=== PATIENT | female | born 2000 | race Caucasian/White ===

== ENCOUNTER 2019-03-19 16:08 | Outpatient (CLI) | payer MEDICAID, SELFPAY ==
[2019-03-19 17:12] LABS: HCT 30.8 % (36.0-46.0); HGB 10.1 g/dL (12.0-15.5); Mean Corp. HGB Concentration 32.8 g/dL (32.0-36.0); Mean Corpuscular Hemoglobin 31.5 pg (27.0-33.0); Mean Platelet Volume 11.4 fL (8.0-11.0); Platelet Count 203 x1000/uL (130-400); RBC 3.21 m/cumm (4.00-5.20); RBC Distribution Width 13.3 % (11.7-14.6); White Blood Cell Count 11.59 k/cumm (4.4-10.8)
[2019-03-21 10:28] LABS: Hepatitis C Ab w Rflx HCV PCR Negative (NEGAT)
[2019-03-21 16:23] LABS: Syphilis Total Ab w/Reflex Nonreactive (Nonreactive)
== END 2019-03-19 16:28 ==
PROVIDERS: Advanced Practice Midwife; Visit Provider Advanced Practice Midwife
DX: Z34.91 Encounter for supervision of normal pregnancy, unspecified, first trimester (principal); Z11.59 Encounter for screening for other viral diseases; Z01.84 Encounter for antibody response examination
CPT/HCPCS: 36415; 85027; 86803; 86850; 86900; 86901; 86780

== ENCOUNTER 2019-04-03 17:56 | Outpatient (REF) | payer MEDICAID, SELFPAY ==
[2019-04-03 18:03] LABS: *AMPHETAMINES SCREEN URINE Negative (Negative); *BARBITURATES SCREEN URINE Negative (Negative); *BENZODIAZEPINES SCREEN URINE Negative (Negative); Cannabinoids THC Negative (Negative); Cocaine Screen,Urine Negative (Negative); METHADONE URINE SCREEN Negative (Negative); OPIATES URINE SCREEN Negative (Negative)
[2019-04-03 18:06] LABS: Tricyclic Antidepressants Negative (Negative)
[2019-04-08 11:58] LABS: Buprenorphine Negative; Norbuprenorphine Negative
== END 2019-04-03 18:16 ==
LOC: LBN 17:56
PROVIDERS: PCP Advanced Practice Midwife; Visit Provider Advanced Practice Midwife
DX: Z34.93 Encounter for supervision of normal pregnancy, unspecified, third trimester (principal); Z36.85 Encounter for antenatal screening for Streptococcus B
CPT/HCPCS: 80307; 87081

== ENCOUNTER 2019-04-10 01:21 | Outpatient (RCR) | payer MEDICAID, SELFPAY ==
[2019-04-10] MEDS: Normal Saline Flush 10 ML SYR IVP (08:26)
[2019-04-10] MEDS: IRON SUCROSE COMPLEX 200 MG in Normal Saline 100 ML 110 MG IVPB (08:26)
== END 2019-04-15 23:59 | disposition home or self-care (01) ==
LOC: INF 01:21
PROVIDERS: PCP Advanced Practice Midwife; Visit Provider Advanced Practice Midwife
DX: O99.013 Anemia complicating pregnancy, third trimester (principal); Z3A.38 38 weeks gestation of pregnancy
CPT/HCPCS: 96365; J1756

== ENCOUNTER 2019-04-16 16:27 | Outpatient (REF) | payer MEDICAID, SELFPAY | END 2019-04-16 16:47 | LOC: LBN 16:27 | PROVIDERS: PCP Advanced Practice Midwife; Visit Provider Advanced Practice Midwife | DX: N89.8 Other specified noninflammatory disorders of vagina (principal); O26.899 Other specified pregnancy related conditions, unspecified trimester | CPT/HCPCS: 87480; 87510; 87660 ==

== ENCOUNTER 2019-04-29 03:31 | Inpatient (IN) | payer MEDICAID, SELFPAY ==
[2019-04-29 05:07] LABS: HCT 34.1 % (36.0-46.0); HGB 11.3 g/dL (12.0-15.5); Mean Corp. HGB Concentration 33.1 g/dL (32.0-36.0); Mean Corpuscular Hemoglobin 32.2 pg (27.0-33.0); Mean Corpuscular Volume 97.2 fL (80-95); Mean Platelet Volume 11.2 fL (8.0-11.0); Platelet Count 196 x1000/uL (130-400); RBC 3.51 m/cumm (4.00-5.20); RBC Distribution Width 14.8 % (11.7-14.6); White Blood Cell Count 12.86 k/cumm (4.4-10.8)
[2019-04-29] MEDS: Acetaminophen 325 MG TAB 650 MG PO (14:04)
[2019-04-29] MEDS: Hamamelis Leaf/Glycerin 100 EACH BOX PR (14:05)
[2019-04-29] MEDS: Ibuprofen 600 MG TAB PO (23:38)
[2019-04-30] MEDS: Acetaminophen 325 MG TAB 650 MG PO ×2 (13:12→18:53)
[2019-04-30] MEDS: Ibuprofen 600 MG TAB PO ×2 (13:13→18:53)
[2019-05-01] MEDS: Ibuprofen 600 MG TAB PO (12:15)
[2019-05-01] MEDS: Acetaminophen 325 MG TAB 650 MG PO (12:16)
== END 2019-05-01 16:20 | disposition home or self-care (01) | DRG 807 ==
PROVIDERS: Admitting Provider Advanced Practice Midwife; PCP Nurse Practitioner; Visit Provider Advanced Practice Midwife
DX: O48.0 Post-term pregnancy (principal); Z37.0 Single live birth; Z3A.41 41 weeks gestation of pregnancy; O99.02 Anemia complicating childbirth; D64.9 Anemia, unspecified; O69.81X0 Labor and delivery complicated by cord around neck, without compression, not applicable or unspecified; Z30.013 Encounter for initial prescription of injectable contraceptive; Z67.10 Type A blood, Rh positive
CPT/HCPCS: 36415; 85027; 86850; 86900; 86901; J1050

== ENCOUNTER 2019-05-01 01:50 | Outpatient (RCR) | payer MEDICAID, SELFPAY ==
[2019-04-17] MEDS: Normal Saline Flush 10 ML SYR IVP (08:19)
[2019-04-17] MEDS: IRON SUCROSE COMPLEX 200 MG in Normal Saline 100 ML 110 MG IVPB (08:19)
[2019-04-24] MEDS: IRON SUCROSE COMPLEX 200 MG in Normal Saline 100 ML 110 MG IVPB (08:39)
[2019-04-24] MEDS: Normal Saline Flush 10 ML SYR IVP (08:40)
== END 2019-05-16 23:59 | disposition home or self-care (01) ==
LOC: INF 01:50
PROVIDERS: PCP Advanced Practice Midwife; Visit Provider Advanced Practice Midwife
DX: O99.013 Anemia complicating pregnancy, third trimester (principal)
CPT/HCPCS: 96365; J1756

== ENCOUNTER 2019-06-26 13:04 | Outpatient (CLI) | payer MEDICAID, SELFPAY ==
[2019-06-26 13:22] LABS: HCT 40.2 % (36.0-46.0); HGB 13.4 g/dL (12.0-15.5); Mean Corp. HGB Concentration 33.3 g/dL (32.0-36.0); Mean Corpuscular Hemoglobin 30.8 pg (27.0-33.0); Mean Corpuscular Volume 92.4 fL (80-95); Mean Platelet Volume 10.9 fL (8.0-11.0); Platelet Count 222 x1000/uL (130-400); RBC 4.35 m/cumm (4.00-5.20); RBC Distribution Width 12.8 % (11.7-14.6); White Blood Cell Count 7.62 k/cumm (4.4-10.8)
[2019-06-26 14:35] LABS: Calculated LDL 125 mg/dL; Cholesterol 185 mg/dL (<200); HDL Cholesterol 36 mg/dL (40-60); Triglyceride 124 mg/dL (<150)
== END 2019-06-26 13:24 ==
PROVIDERS: PCP Nurse Practitioner; Visit Provider Nurse Practitioner
DX: D64.9 Anemia, unspecified (principal); Z13.6 Encounter for screening for cardiovascular disorders
CPT/HCPCS: 36415; 80061; 85027

== ENCOUNTER 2019-07-25 16:53 | Outpatient (REF) | payer MEDICAID, SELFPAY ==
[2019-07-26 14:08] LABS: Chlamydia Result Negative (Negative); GC Result Negative (Negative)
== END 2019-07-25 17:13 ==
LOC: LBN 16:53
PROVIDERS: PCP Nurse Practitioner; Visit Provider Nurse Practitioner Family
DX: Z11.3 Encounter for screening for infections with a predominantly sexual mode of transmission (principal)
CPT/HCPCS: 87491; 87591

== ENCOUNTER 2022-09-12 02:52 | Outpatient (CLI) | payer MEDICAID, SELFPAY ==
[2022-09-12 12:08] LABS: Panorama Kit Sent via Fed Ex
[2022-09-12 12:28] LABS: Abs Immature Grans 0.02 10^3/uL (0.0-0.06); Absolute Basophil Count 0.01 10^3/uL (0.0-0.2); Absolute Eosinophil Count 0.14 10^3/uL (0.0-0.7); Absolute Lymphocyte Count 1.45 10^3/uL (1.2-3.4); Absolute Monocyte Count 0.34 10^3/uL (0.1-0.8); Absolute Neutrophil Count 3.69 10^3/uL (1.2-6.7); Basophils % 0.2; Eosinophils % 2.5; HCT 32.6 % (36.0-46.0); HGB 11.3 g/dL (11.2-15.7); Immature Grans % 0.4; Lymphocytes % 25.7; MCH 30.7 pg (27.0-33.0); MCHC 34.7 % (32.0-36.0); MCV 89 fL (80-95); MPV 11.2 fL (8.0-11.0); Neutrophils % 65.2; Platelet Count 175 10^3/uL (130-400); RBC 3.68 10^6/uL (3.93-5.22); RDW 12.6 % (11.7-14.6); RDW-SD 40.8 fL; WBC 5.65 10^3/uL (4.4-10.8)
[2022-09-12 12:58] LABS: Glucose,1 Hr (Glucola) 72 mg/dL (80-140)
[2022-09-13 10:08] LABS: Hepatitis B Surface Ag Negative (Negative)
[2022-09-13 10:28] LABS: Varicella IgG Antibody Negative (See Note)
[2022-09-13 10:42] LABS: HIV-1/2 Ag & Ab Screen Negative (Negative)
[2022-09-13 10:46] LABS: Hepatitis C Ab w Rflx HCV PCR Negative (Negative)
[2022-09-13 12:42] LABS: Rubella IgG Ab (UVM) Positive (See Note)
[2022-09-14 14:01] LABS: Syphilis IgG w/Reflex Nonreactive (Nonreactive)
== END 2022-09-12 02:53 | disposition home or self-care (01) ==
LOC: LBO 02:53
PROVIDERS: PCP Nurse Practitioner; Visit Provider Advanced Practice Midwife
DX: Z34.91 Encounter for supervision of normal pregnancy, unspecified, first trimester (principal)
CPT/HCPCS: 36415; 82950; 86787; 86803; 86850; 86900; 86901; 87340; 87389; 85025; 86762; 86780

== ENCOUNTER 2022-09-12 12:23 | Outpatient (CLI) | payer MEDICAID, SELFPAY ==
[2022-09-12 14:07] LABS: *AMPHETAMINES SCREEN URINE Negative (Negative); *BARBITURATES SCREEN URINE Negative (Negative); *BENZODIAZEPINES SCREEN URINE Negative (Negative); Cannabinoids THC Negative (Negative); Cocaine Screen,Urine Negative (Negative); METHADONE URINE SCREEN Negative (Negative); OPIATES URINE SCREEN Negative (Negative)
[2022-09-12 14:10] LABS: Tricyclic Antidepressants Negative (Negative)
[2022-09-17 11:48] LABS: Buprenorphine Negative ng/mL (Cutoff: 5.0); Norbuprenorphine Negative ng/mL (Cutoff: 2.5)
== END 2022-09-12 12:24 | disposition home or self-care (01) ==
LOC: LBN 12:24
PROVIDERS: PCP Nurse Practitioner; Visit Provider Advanced Practice Midwife
DX: Z34.91 Encounter for supervision of normal pregnancy, unspecified, first trimester (principal)
CPT/HCPCS: 80307; 80348; 87086

== ENCOUNTER 2022-11-09 16:18 | Outpatient (REF) | payer MEDICAID, SELFPAY ==
[2022-11-11 15:14] LABS: Chlamydia Result Negative (Negative); GC Result Negative (Negative)
== END 2022-11-09 16:19 | disposition home or self-care (01) ==
LOC: LBN 16:18
PROVIDERS: PCP Nurse Practitioner; Visit Provider Advanced Practice Midwife
DX: Z34.92 Encounter for supervision of normal pregnancy, unspecified, second trimester (principal); Z11.3 Encounter for screening for infections with a predominantly sexual mode of transmission; Z3A.19 19 weeks gestation of pregnancy
CPT/HCPCS: 87491; 87591

== ENCOUNTER 2022-11-21 01:07 | Outpatient (CLI) | payer MEDICAID, SELFPAY ==
--- NOTE | 2022-11-21 07:45 | DI.US_ITS ---
Exam(s) US OB 2-3 TRIMESTER EXAM: US OB 2-3 TRIMESTER CLINICAL HISTORY: morphology,z34.92. TECHNIQUE: Transabdominal obstetrical ultrasound performed. COMPARISON: US POCUS EXAM from 08/29/2022 FINDINGS: Number of fetuses: One. position: Variable Placental grade: 0-1 Placental location: Posterior. No evidence of previa. BIOMETRIC DATA: BPD: 50mm = 21+2 weeks HC: 184mm = 20+ 5 weeks AC: 1 6mm = 21+1 weeks FL: 35mm = 20+ 6 weeks Cisterna Magna: 4.9 mm Cerebellum: 2.1 cm EFW: 391 grms 60% Composite Age: 21+ 0 weeks EDC by US: 03 April 2023 Heart Rate: 140BPM Amniotic fluid : Amount of fluid is within normal limits. ANATOMICAL SURVEY: Four-chambered heart: Unremarkable. LVOT: Unremarkable. RVOT: Unremarkable. Left-sided stomach: Unremarkable. urinary bladder: Unremarkable. Bilateral kidneys: Unremarkable. Three-vessel cord: Unremarkable. Cord insertion: Unremarkable. Posterior fossa:Unremarkable. ventricles: Unremarkable. nose: Unremarkable. lips: Unremarkable. palate: Unremarkable. spine: Unremarkable. Two arms and two legs: Unremarkable. IMPRESSION: 1. Single live intrauterine gestation measuring 21+ 0 weeks.. 2. Normal anatomic survey. DATA REPOSITORY:
== END 2022-11-21 01:27 ==
LOC: DI 01:07
PROVIDERS: PCP Nurse Practitioner; Visit Provider Advanced Practice Midwife
DX: Z34.92 Encounter for supervision of normal pregnancy, unspecified, second trimester (principal)
CPT/HCPCS: 76805

== ENCOUNTER 2022-12-13 03:21 | Outpatient (RCR) | payer MEDICAID, SELFPAY ==
[2022-12-05] MEDS: IRON SUCROSE COMPLEX 200 MG in Normal Saline 100 ML 440 MG IVPB (13:18)
[2022-12-05] MEDS: Normal Saline Flush 10 ML SYR IVP (13:21)
== END 2022-12-14 23:59 | disposition home or self-care (01) ==
LOC: INF 03:21
PROVIDERS: PCP Nurse Practitioner; Visit Provider Advanced Practice Midwife
DX: O99.012 Anemia complicating pregnancy, second trimester (principal); D64.9 Anemia, unspecified
CPT/HCPCS: 36415; 96365; 85018; J1756

== ENCOUNTER 2023-01-02 04:16 | Outpatient (CLI) | payer MEDICAID, SELFPAY ==
[2023-01-02 11:10] LABS: HGB 11.9 g/dL (11.2-15.7); MCH 32.1 pg (27.0-33.0); MCV 94 fL (80-95); Platelet Count 171 10^3/uL (130-400); RBC 3.71 10^6/uL (3.93-5.22); RDW 13.4 % (11.7-14.6); RDW-SD 46.6 fL; WBC 7.21 10^3/uL (4.4-10.8)
[2023-01-02 12:23] LABS: Glucose,1 Hr (Glucola) 106 mg/dL (80-140)
[2023-01-02 13:03] LABS: *AMPHETAMINES SCREEN URINE Negative (Negative); *BARBITURATES SCREEN URINE Negative (Negative); *BENZODIAZEPINES SCREEN URINE Negative (Negative); Cannabinoids THC Negative (Negative); Cocaine Screen,Urine Negative (Negative); METHADONE URINE SCREEN Negative (Negative); OPIATES URINE SCREEN Negative (Negative)
[2023-01-02 13:10] LABS: Tricyclic Antidepressants Negative (Negative)
== END 2023-01-02 04:17 | disposition home or self-care (01) ==
LOC: LBO 04:17
PROVIDERS: Advanced Practice Midwife; PCP Nurse Practitioner; Visit Provider Advanced Practice Midwife
DX: O99.322 Drug use complicating pregnancy, second trimester (principal); Z3A.26 26 weeks gestation of pregnancy
CPT/HCPCS: 36415; 80307; 82950; 85027

== ENCOUNTER 2023-03-07 08:38 | Outpatient (CLI) | payer MEDICAID, SELFPAY ==
[2023-03-07 09:18] VITALS: BP 107/57; PULSE 73; TEMP 36.9
[2023-03-07 09:40] VITALS: BP 107/57; PULSE 73
[2023-03-07 09:44] LABS: ROM Plus Negative
--- NOTE | 2023-03-07 12:19 | W.OBNST ---
Date of service: 03/07/23 Time of Service: 12:21 NST Evaluation Reason for NST Reasons for Nonstress Test: OTHER, SEE COMMENT Reason for NST Other: ? SROM Gestational Age Gestational Age in Weeks and Days: 35 Weeks and 6Days Test and Monitor Explained Test/Monitor Explained: Test Explained, Monitor Explained and Patient Verbalized Understanding Vital Signs Blood Pressure: 107/57 Pulse: 73 Temperature: 98.4 F NST Information Date on Monitor: 03/07/23 Time on Monitor: 09:16 Date off Monitor: 03/07/23 Time off Monitor: 10:33 Total Time on Monitor: 77 NST Interventions: PO Hydration Contraction Frequency: None NST Evaluation Patient States Movement: Present FHR Baseline: 135 Variability: Moderate 6-25 bpm Accelerations: 15x15 Decelerations: None NST Results: Reactive Note Ultrasound Done: Presentation Presentation Results: vertex Coding for Presentation w/NST: Completed Exam. NST Note Note: Amanda experienced a trickle of fluid from her vagina last evening. She did not wear a pad in and denies leaking currently. ROM plus neg. Neg pooling ferning and nitrazine. Mucus and rock discharge noted. Vaginal pathogen screen taken and GBS. No evidence of labor or ROM. Signs of labor reviewed. NST Reviewed and Verified by: Maite Ro
[2023-03-07 12:21] VITALS: BP 107/57; PULSE 73; TEMP 36.9
== END 2023-03-07 10:45 | disposition home or self-care (01) ==
LOC: BCD 08:41 → OBS 08:44
PROVIDERS: PCP Nurse Practitioner; Visit Provider Advanced Practice Midwife
DX: O47.03 False labor before 37 completed weeks of gestation, third trimester (principal); Z3A.35 35 weeks gestation of pregnancy
CPT/HCPCS: 84112; 59025; 87081; 87480; 87510; 87660

== ENCOUNTER 2023-03-13 09:55 | Outpatient (REF) | payer MEDICAID, SELFPAY ==
[2023-03-13 10:59] LABS: *AMPHETAMINES SCREEN URINE Negative (Negative); *BARBITURATES SCREEN URINE Negative (Negative); *BENZODIAZEPINES SCREEN URINE Negative (Negative); Cannabinoids THC Negative (Negative); Cocaine Screen,Urine Negative (Negative); METHADONE URINE SCREEN Negative (Negative); OPIATES URINE SCREEN Negative (Negative)
[2023-03-13 11:01] LABS: Tricyclic Antidepressants Negative (Negative)
[2023-03-18 11:30] LABS: Buprenorphine Negative ng/mL (Cutoff: 5.0)
== END 2023-03-13 09:56 | disposition home or self-care (01) ==
LOC: LBN 09:55
PROVIDERS: PCP Nurse Practitioner; Visit Provider Advanced Practice Midwife
DX: Z34.93 Encounter for supervision of normal pregnancy, unspecified, third trimester (principal)
CPT/HCPCS: 80307; 80348

== ENCOUNTER 2023-04-01 03:27 | Inpatient (IN) | payer MEDICAID, SELFPAY ==
[2023-04-01] VITALS (65 sets, daily range): BP systolic 100–134; BP diastolic 55–71; PULSE 56–84; RESP 16–17; TEMP 36.5–36.7; O2SAT 90–100; BMI 37.0
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
[2023-04-01 04:45] LABS: HCT 32.1 % (36.0-46.0); HGB 10.9 g/dL (11.2-15.7); MCH 31.2 pg (27.0-33.0); MCV 92 fL (80-95); MPV 11.9 fL (8.0-11.0); Platelet Count 159 10^3/uL (130-400); RBC 3.49 10^6/uL (3.93-5.22); RDW 13.3 % (11.7-14.6); RDW-SD 44.3 fL; WBC 7.61 10^3/uL (4.4-10.8)
[2023-04-01 05:00] LABS: ROM Plus Negative
--- NOTE | 2023-04-01 05:01 | ANES.PREOP_ITS ---
General Info Date of Service Date Performed: 04/01/23 Height: 5 ft 8 in Weight: 110.677 kg Body Mass Index (BMI): 37.0 Meds Allergies and Home Medications Allergies Allergy/AdvReac Type Severity Reaction Status Date / Time cat hair Allergy Mild Itching Uncoded 04/01/23 04:25 dog hair Allergy Mild Itching Uncoded 04/01/23 04:25 Home Medication Medication Instructions Recorded albuterol sulfate 90 mcg/actuation 2 puff inhalation QID PRN 07/25/22 aerosol inhaler shortness of breath or wheezing #18 grams vitamin with calcium 1 tab PO DAILY #90 tabs 08/11/22 no.72-iron 27 mg-folic acid 1 mg tablet bupropion HCl 150 mg 24 hr tablet, 150 mg PO QAM #30 tabs 01/12/23 extended release (Wellbutrin XL) Current Visit Medications: Current Medications Generic Name Dose Route Start Last Admin Trade Name Freq PRN Reason Stop Dose Admin Albuterol Sulfate 2 puff 04/01/23 04:43 Albuterol Hfa 8 Gm 60 Puff Inh IH QID PRN shortness of breath or wheezing Bupropion HCl 150 mg 04/01/23 08:30 Bupropion-Xl 150 Mg Tabcr PO QAM MIRNA Device 1 each 04/01/23 05:00 Inhaler, Assist Device MC DIRECTED MIRNA Fentanyl/Ropivacaine 200 ml 04/01/23 04:30 Fentanyl/Ropivacaine 2 Mcg/Ml And 0.1% 200 Ml Cadd Cassette EP DIRECTED MIRNA Sodium Chloride 500 mls @ 0 mls/hr 04/01/23 04:01 Saline 500ml Bag IV PRN PRN As Directed Ringer's Solution 500 mls @ 500 mls/hr 04/01/23 04:23 IV 04/01/23 05:22 BOLUS ONE IV Miscellaneous Supplies 1 each 04/01/23 04:15 Iv Access IV DIRECTED [facility] Multivitamins 1 tab 04/01/23 08:30 Multivitamin W/Ca,Fe Tab PO DAILY MIRNA Sodium Chloride 0 ml 04/01/23 04:01 Normal Saline Flush 10 Ml Syr IVP PRN PRN PFSH Active Problems Active Problems: Problem Status Onset Code Normal labor O80, Z37.9 Susceptible to varicella (non-immune), currently O09.899, Z28.39 Z34.90 Migraine headache without aura G43.009 Psoriasis L40.9 Contraception Z30.9 Constipation K59.00 External hemorrhoid K64.4 Cat allergies J30.81 Depression affecting , O99.345, F53.0 Asthma J45.909 Medical History Medical History Anemia affecting first COVID-19 (06/19/21) History of ovarian cyst Pneumonia (06/19/21) Tobacco Smoking/Tobacco Use Status: Former Tobacco Use Second hand exposure: Yes Alcohol Alcohol Intake: current Alcohol intake frequency: a few times a month Substance Use Substance use: Never Substance use type: does not use Prental History History 3 Para 2 Hx # Term Pregnancies 2 Multiple births 0 Hx # Pregnancies 0 Ectopic pregnancies 0 AB induced 0 Hx Number of Living Children 2 AB spontaneous 0 Past Pregnancies Del. Date GA/Weeks # Preg Succ Route Wgt Sex Labor Lgth Anesth esia Location Prov Compl 04/29/19 40 No vaginal 3742.137 g Male 11 hrs 29 min Maite Ro CNM 10/06/21 40 No Yes vaginal 3770.487 g Male [address] [place], [place] Delivery Date: 04/29/19 Last Updated by: Maite Bar CNM [place] Delivery Date: 10/06/21 Last Updated by: SHUN Grimes. PROM, IOL Vital Signs and Lab Results Vital Signs Most Recent Vital Signs in EMR: Most Recent Vital Signs Temp Pulse Resp BP Pulse Ox 36.5 C 72 17 100/56 L 98 04/01/23 04:39 04/01/23 04:39 04/01/23 04:39 04/01/23 04:39 04/01/23 04:39 Lab Results 04/01/23 04:30 Blood Type / Crossmatch: Patient ABO/Rh A Positive 04/01/23 Antibody Screen NEGATIVE 04/01/23 Complete Blood Count: White Blood Count 7.61 10^3/uL (4.4-10.8) 04/01/23 04:30 Red Blood Count 3.49 10^6/uL (3.93-5.22) L 04/01/23 04:30 Hemoglobin 10.9 g/dL (11.2-15.7) L 04/01/23 04:30 Hematocrit 32.1 % (36.0-46.0) L 04/01/23 04:30 Platelet Count 159 10^3/uL (130-400) 04/01/23 04:30 Complete Metabolic Panel: No Data to Display Liver Function Panel: No Data to Display Coagulation Panel: No Data to Display Cardiac Panel: No Data to Display Arterial Blood Gas: No Data to Display Venous Blood Gas: No Data to Display Pancreas Panel: No Data to Display Thyroid Panel: No Data to Display Infectious Disease: No Data to Display Blood Cultures: No Data to Display Toxicology Panel: Urine Amphetamines Screen Negative (Negative) 03/13/23 09:00 Urine Benzodiazepines Screen Negative (Negative) 03/13/23 09:0 0 Urine Barbiturates Screen Negative (Negative) 03/13/23 09:00 Urine Cocaine Screen Negative (Negative) 03/13/23 09:00 Urine Methadone Screen Negative (Negative) 03/13/23 09:00 Urine Opiates Screen Negative (Negative) 03/13/23 09:00 Ur Tricyclic Antidepressants Screen Negative (Negative) 09:00 Ur Tetrahydrocannabinol (THC) Scrn Negative (Negative) 3 09:00 Panel: No Data to Display Anesthesia Assessment and Plan Anesthesia History Personal History: No History of Anesthesia Complications Family History: No Family History of Anesthesia Complications Exercise Tolerance Exercise Tolerance: Metabolic Equivalents>4 Pertinent Negatives Pertinent Negatives: No Major Cardiovascular Symptoms or Complaints, No Major Pulmonary Symptoms or Complaints and No History of CVA/TIA Cardiac & Pulmonary Exam Cardiac Exam: Normal S1/S2 Heart Sounds Pulmonary Exam: Clear Bilateral Breath Sounds Implantable Cardiac Device Does patient have a Pacemaker or an ICD?: No Airway Exam Known Difficult Airway: No Mallampati Class: 2 Mouth Opening: Normal (> 3cm) Thyromental Distance: Greater than 3 cm Neck Range of Motion: Full ROM Neck Circumference: Normal Teeth Condition: Normal Dentition ASA Classification ASA Score: ASA 2 Emergency Case?: No NPO Status NPO Status: NPO Clears >2 hours, Solids >8 hours Status Status: Confirmed Anesthesia Plan Resuscitation Status: Full Code Anesthesia Technique: Epidural Anesthesia Airway Planned: Natural Airway Pain Management: Surgeon and patient request nerve block Monitors Used: Standard Monitors
[2023-04-01] MEDS: FentaNYL/ROPIvacaine 2 mcg/ml and 0.1% 200 ML CADD Cassette EP (05:40)
--- NOTE | 2023-04-01 05:46 | W.PM.OBNL1 ---
Date of service: 04/01/23 Time of Service: 05:46 Pelvic Exam Comments: VE deferred Contractions Monitor Mode: External Contraction Frequency(min): 3 Contraction Duration(sec): 60 Intensity: Moderate/Strong Fetus A Monitor: External (US) Heart Rate Baseline: 125 Presentation: Cephalic Variability: Moderate (6-25 BPM) Categories: Category I Amniotic Membrane Status: Intact Assessment Note: ROM + negative Assessment and Plan Assessment and plan (1) Normal labor: Status: Acute Assessment and plan: 1. epidural is in place and bolus is going now 2. Will reassess VE after epidural is more effective, consider AROM if BOW is palpable 3. Expect NVD. Dr. Nolen is aware of patient admission and status. KH Objective Abnormal lab results 04/01/23 Range/Units 04:30 RBC 3.49 L (3.93-5.22) 10^6/uL Hgb 10.9 L (11.2-15.7) g/dL Hct 32.1 L (36.0-46.0) % MPV 11.9 H (8.0-11.0) fL Temp Pulse Resp BP Pulse Ox 97.7 F 76 17 116/67 99 04/01/23 04:39 04/01/23 05:45 04/01/23 04:39 04/01/23 05:43 04/01/23 05:45 Laboratory Results WBC 7.61 10^3/uL (4.4-10.8) 04/01/23 04:30 RBC 3.49 10^6/uL (3.93-5.22) L 04/01/23 04:30 Hgb 10.9 g/dL (11.2-15.7) L 04/01/23 04:30 Hct 32.1 % (36.0-46.0) L 04/01/23 04:30 MCV 92 fL (80-95) 04/01/23 04:30 MCH 31.2 pg (27.0-33.0) 04/01/23 04:30 MCHC 34.0 % (32.0-36.0) 04/01/23 04:30 RDW 13.3 % (11.7-14.6) 04/01/23 04:30 Plt Count 159 10^3/uL (130-400) 04/01/23 04:30 MPV 11.9 fL (8.0-11.0) H 04/01/23 04:30 Membranes Rupture Negative 04/01/23 04:25 Patient ABO/Rh A Positive 04/01/23 04:30 Antibody Screen NEGATIVE 04/01/23 04:30 Vital Signs Reviewed: Yes Subjective Interval history since last seen: Amanda tolerated epidural well and is now laying down again awaiting relief. Interventions Pain Management Interventions: Epidural. Results Hemoglobin/Hematocrit: Hgb 10.9 g/dL (11.2-15.7) L 04/01/23 04:30 Hct 32.1 % (36.0-46.0) L 04/01/23 04:30 Abnormal Lab Findings: Abnormal Labs 04/01/23 04:30 RBC 3.49 L Hgb 10.9 L Hct 32.1 L MPV 11.9 H
--- NOTE | 2023-04-01 05:47 | ANES.NEUR_ITS ---
Epidural/Spinal Catheter Date Performed: 04/01/23 Procedure Start: 05:20 Procedure Stop: 05:35 Requesting Provider: Maite Bar Procedure Location: Obstetrics Reason Performed: Labor Epidural Standard Monitors Applied: Blood Pressure and SpO2 Patient Position: Sitting Sedation Given (Indicate Dose Given): No Sedation given Patient Mental Status: Awake Sterility: Hand Hygiene, Surgical Cap, Surgical Mask, Sterile Gloves, Sterile Drape/Sheet and Chlorhexidine Procedure Location: L4-L5 Interspace Epidural Needle: Tuohy 17 Guage Needle Length: 3.5 Inch Needle Approach: Midline Epidural Procedure: Skin Prepped, Sterile Drape Placed, 1% Lidocaine to skin and subcutaneous tissue with 25G needle, Tuohy Needle placed, Bone Contacted despite needle repositioning (L3/L4: proceeded to L4/L5 level), DERICK to Saline Used, Epidural Catheter Placed (L4/5), Negative Heme, Negative CSF Flow and Tuohy Needle Removed Catheter Placed?: Catheter Placed Test Dose (Indicate Dose Given): 5ml 1.5% Lidocaine with 1:200K Epinephrine Given and Negative Test Dose Loss of Resistance Depth (cm): 9 Catheter depth at skin (cm): 15 Dressing: Sorbaview Dressing Placed, Mastisol Used and Dressing reinforced with Tape Epidural Provider Bolus (Indicate Dose Given): Total Ropivacaine 0.1% with Fentanyl 2mcg/ml Given from pump. (ml) Dose:: 10 ml Additives (Indicate Dose Given ): N one Infusion Medication: Medication Infusion Began Medication Infusion: Ropivacaine 0.1% with Fentanyl 2mcg/ml Maintenance Infusion Rate (ml/hour): 10 PCEA Bolus Dose (ml): 5 Block Level: N/A (Currently still setting up) Paresthesia: Left Paresthesia Duration: Transient Ultrasound: Not Used Number of Attempts (See previous attempts in note section): 2 Procedure Tolerated: No Complications and Patient tolerated well Procedure Outcome: Successful Performed By: Cale Watt
--- NOTE | 2023-04-01 07:26 | W.PM.OBNL1 ---
Date of service: 04/01/23 Time of Service: 07:26 Pelvic Exam Comments: last VE was 8cm following epidural, currently deferred Contractions Monitor Mode: External Contraction Frequency(min): 2-4 Contraction Duration(sec): 50-80 Intensity: Moderate/Strong Fetus A Monitor: External (US) Heart Rate Baseline: 120 Variability: Moderate (6-25 BPM) Categories: Category I Accelerations: Present Decelerations: Early (not recurrent) Assessment and Plan Assessment and plan (1) Normal labor: Status: Acute Assessment and plan: 1. continue current management, expect NVD. KH Objective Abnormal lab results 04/01/23 Range/Units 04:30 RBC 3.49 L (3.93-5.22) 10^6/uL Hgb 10.9 L (11.2-15.7) g/dL Hct 32.1 L (36.0-46.0) % MPV 11.9 H (8.0-11.0) fL Temp Pulse Resp BP Pulse Ox 97.7 F 72 17 129/59 L 99 04/01/23 04:39 04/01/23 07:14 04/01/23 04:39 04/01/23 07:14 04/01/23 07:05 Laboratory Results WBC 7.61 10^3/uL (4.4-10.8) 04/01/23 04:30 RBC 3.49 10^6/uL (3.93-5.22) L 04/01/23 04:30 Hgb 10.9 g/dL (11.2-15.7) L 04/01/23 04:30 Hct 32.1 % (36.0-46.0) L 04/01/23 04:30 MCV 92 fL (80-95) 04/01/23 04:30 MCH 31.2 pg (27.0-33.0) 04/01/23 04:30 MCHC 34.0 % (32.0-36.0) 04/01/23 04:30 RDW 13.3 % (11.7-14.6) 04/01/23 04:30 Plt Count 159 10^3/uL (130-400) 04/01/23 04:30 MPV 11.9 fL (8.0-11.0) H 04/01/23 04:30 Membranes Rupture Negative 04/01/23 04:25 Patient ABO/Rh A Positive 04/01/23 04:30 Antibody Screen NEGATIVE 04/01/23 04:30 Subjective Interval history since last seen: remains very comfortable and denies urge to push. Visiting with family. Results Hemoglobin/Hematocrit: Hgb 10.9 g/dL (11.2-15.7) L 04/01/23 04:30 Hct 32.1 % (36.0-46.0) L 04/01/23 04:30 Abnormal Lab Findings: Abnormal Labs 04/01/23 04:30 RBC 3.49 L Hgb 10.9 L Hct 32.1 L MPV 11.9 H
--- NOTE | 2023-04-01 08:09 | W.PM.OBNL1 ---
Date of service: 04/01/23 Time of Service: 08:09 Pelvic Exam Dilation: 9.5 Effacement (%): 100 station: -1 Cervix Position: anterior Consistency: soft Contractions Monitor Mode: External Contraction Frequency(min): 3-5 Contraction Duration(sec): 60 Intensity: Moderate/Strong Fetus A Monitor: External (US) Heart Rate Baseline: 120 Variability: Moderate (6-25 BPM) Categories: Category I Assessment and Plan Assessment and plan (1) Normal labor: Status: Acute Assessment and plan: 1. continue present management, will reassess in 1 hour or prn, expect NVD 2. Report to Dr. Nolen given as MD was on unit, no change to plan of care. KH Objective Abnormal lab results 04/01/23 Range/Units 04:30 RBC 3.49 L (3.93-5.22) 10^6/uL Hgb 10.9 L (11.2-15.7) g/dL Hct 32.1 L (36.0-46.0) % MPV 11.9 H (8.0-11.0) fL Temp Pulse Resp BP Pulse Ox 97.7 F 72 16 129/59 L 99 04/01/23 04:39 04/01/23 07:14 04/01/23 07:00 04/01/23 07:14 04/01/23 07:05 Laboratory Results WBC 7.61 10^3/uL (4.4-10.8) 04/01/23 04:30 RBC 3.49 10^6/uL (3.93-5.22) L 04/01/23 04:30 Hgb 10.9 g/dL (11.2-15.7) L 04/01/23 04:30 Hct 32.1 % (36.0-46.0) L 04/01/23 04:30 MCV 92 fL (80-95) 04/01/23 04:30 MCH 31.2 pg (27.0-33.0) 04/01/23 04:30 MCHC 34.0 % (32.0-36.0) 04/01/23 04:30 RDW 13.3 % (11.7-14.6) 04/01/23 04:30 Plt Count 159 10^3/uL (130-400) 04/01/23 04:30 MPV 11.9 fL (8.0-11.0) H 04/01/23 04:30 Membranes Rupture Negative 04/01/23 04:25 Patient ABO/Rh A Positive 04/01/23 04:30 Antibody Screen NEGATIVE 04/01/23 04:30 Subjective Interval history since last seen: starting to feel rectal pressure but no strong urge to push, requested VE Results Hemoglobin/Hematocrit: Hgb 10.9 g/dL (11.2-15.7) L 04/01/23 04:30 Hct 32.1 % (36.0-46.0) L 04/01/23 04:30 Abnormal Lab Findings: Abnormal Labs 04/01/23 04:30 RBC 3.49 L Hgb 10.9 L Hct 32.1 L MPV 11.9 H
[2023-04-01] MEDS: Oxytocin/Normal Saline 30 UNIT/500 ML BAG 334 UNITS IV (09:00)
--- NOTE | 2023-04-01 09:09 | W.OBDELIVERY ---
Date of service: 04/01/23 Time of Service: 09:10 OB Labor/ Delivery Information Baby A Delivery Delivery Method: Spontaneaous Presentation: Cephalic Cephalic Position: Vertex Vertex Position: Left Occipital Anterior Cord Description-Baby A: 3 Vessels and Nuchal Cord (X 1 loose, reduced prior to shoulders delivering) Amniotic Fluid: Clear Estimated Blood Loss: 300 Delivery Outcome: Liveborn Complications: none Transferred: Remains with Mother Note: Amanda presented in active labor early this morning after labor started at 0030. Her desire was epidural for pain management and that was arranged. She had good labor progression to 8cm after epidural and at that time AROM was performed for clear fluid, at 0605. At 8:30 she felt urge to push and was found to be 10 cm, 100%, +2. She pushed with excellent effort and baby's head delivered at 0856, nuchal cord X 1 loose was noted and reduced quickly before shoulders and body delivered spontaneously with maternal pushing effort. Baby was placed skin to skin. 8 and 9. 3 vessel cord noted. When pulsations ceased, cord was double clamped and then cut by FOB. Cord blood obtained. Pitocin was initiated via IV per orders after of baby. Placenta delivered with maternal pushing effort at 0856, intact. Fundus firms to below U with massage. Bimanual done by CNM confirms no clots in upper vagina and firm lower uterine segment. Perineum and vagina are intact. Sponge, needle and instrument count are correct. EBL 300cc. Expect 24 hour PP stay. Amanda plans to formula feed her son, Refugio. She has been education on the benefits of breast feeding and potential risks of formula feeding and feels confident in her choice. They plan circumcision for their . Decline taking placenta home with them. Refugio's weight was 7lb 12.5 oz. Amanda is planning tubal ligation for contraception. Providers Nurse Dialysis Clinical Manager: Maite Bar Liquid Waste Treatment Plant Operator: Cale Watt Nurse: Beryl Fernandez Nurse: Noni Cantu Labor/Delivery Information Number of Babies in Womb: 1 Steroids Given: None Reason Steroids Not Administered: N/A Group Beta Strep: Negative Antibiotics Administered: No Rubella Status: Immune Blood Type: A+ Varicella Immunity: Nonimmune Shoulder Dystocia: No Stages of Labor Onset of Labor Date: 04/01/23 Onset of Labor Time: 00:30 Complete Dilatation Date: 04/01/23 Complete Dilatation Time: 08:30 Labor - Stage 1 Duration: 8 hours and 0 minutes ROM Baby A: 04/01/23 ROM Baby A: 06:01 ROM Total Time- Baby A: [id number] Infant Delivery Date-Baby A: 04/01/23 Infant Delivery Time-Baby A: 08:56 Labor Stage 2 Duration: 26 minutes Placenta Delivery Date-Baby A: 04/01/23 Placenta Delivery Time-Baby A: 09:04 Labor-Stage 3 Duration: 8 minutes Total Length of Labor-Baby A: 8 hours and 26 minutes Placenta Status: Delivered Baby A Infant Gender: Male Gestational Status: Term (39-41.6 wks) Gestational Age in Weeks/Days: 39 Weeks and 3 Days Score-1 Minute Interval(Baby A) Heart Rate-1 minute: 100 BPM or Greater Respiratory Effort- 1 minute: Slow Respiration/Weak Cry Muscle Tone-1 minute: Active Movement Reflex Response-1 minute: Prompt Response Color-1 minute: Bluish Hands or Feet Total Score-1 minute: 8 Score-5 Minute Interval(Baby A) Heart Rate- 5 minute: 100 BPM or Greater Respiratory Effort-5 minute: Spontaneous/Strong Cry Muscle Tone-5 minute: Active Movement Reflex Response-5 minute: Prompt Response Color-5 minute: Bluish Hands or Feet Total Score- 5 minute: 9
[2023-04-01] MEDS: Hamamelis Leaf/Glycerin 100 EACH BOX PR (09:36)
[2023-04-01] MEDS: Ibuprofen 600 MG TAB PO ×3 (09:37→22:14)
[2023-04-01] MEDS: Prenatal Multivitamin w/CA,FE TAB 1 TAB PO (09:37)
[2023-04-01] MEDS: Acetaminophen 325 MG TAB 650 MG PO ×3 (09:38→22:14)
[2023-04-01] MEDS: buPROPion-XL 150 MG TABCR PO (09:39)
--- NOTE | 2023-04-01 10:48 | W.ANESPOSTOP ---
Postoperative Evaluation Date, Time and Location Date Performed: 04/01/23 Time Performed: 10:48 Patient Location: Obstetrics Vital Signs Most Recent Imported Vital Signs: Most Recent Vital Signs Temp Pulse Resp BP Pulse Ox 36.5 C 56 L 16 115/64 99 04/01/23 04:39 04/01/23 10:15 04/01/23 09:00 04/01/23 10:15 04/01/23 07:05 Pain Score Most Recent Pain Score: Most Recent Pain Score Pain Level 1 04/01/23 09:38 Assessment Mental Status: Awake (Alert & Oriented to Patient Baseline) Airway and Respiratory Function: Patent airway with normal (patient baseline) respiratory exam Cardiovascular Function: Hemodynamically Stable Hydration Status: Adequately Hydrated Nausea & Vomiting: No Nausea or Vomiting Pain: Pain is tolerable per patient Peripheral Nerve Block: Other (Epidural appropriately resolving, denied complaint, denied headache, denied backpain. Removed catheter with tip intact.)
[2023-04-02] MEDS: Ibuprofen 600 MG TAB PO ×2 (05:37→11:31)
[2023-04-02] MEDS: Acetaminophen 325 MG TAB 650 MG PO ×2 (05:37→11:32)
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
[2023-04-02 08:40] VITALS: BP 114/69; PULSE 64; RESP 16; TEMP 36.7
[2023-04-02] MEDS: Prenatal Multivitamin w/CA,FE TAB 1 TAB PO (11:31)
[2023-04-02] MEDS: buPROPion-XL 150 MG TABCR PO (11:31)
== END 2023-04-02 13:00 | disposition home or self-care (01) | DRG 806 ==
PROVIDERS: Admitting Provider Advanced Practice Midwife; PCP Nurse Practitioner; Visit Provider Advanced Practice Midwife
DX: O99.02 Anemia complicating childbirth (principal); O99.354 Diseases of the nervous system complicating childbirth; Z37.0 Single live birth; Z3A.39 39 weeks gestation of pregnancy; O69.81X0 Labor and delivery complicated by cord around neck, without compression, not applicable or unspecified; D64.9 Anemia, unspecified; O99.52 Diseases of the respiratory system complicating childbirth; O99.72 Diseases of the skin and subcutaneous tissue complicating childbirth; O99.344 Other mental disorders complicating childbirth; F32.A Depression, unspecified; O99.62 Diseases of the digestive system complicating childbirth; J45.909 Unspecified asthma, uncomplicated; K64.4 Residual hemorrhoidal skin tags; K59.00 Constipation, unspecified; L40.9 Psoriasis, unspecified; G43.009 Migraine without aura, not intractable, without status migrainosus
CPT/HCPCS: 84112; 85027; 86850; 86900; 86901

== ENCOUNTER 2023-05-15 10:10 | Outpatient (REF) | payer MEDICAID, SELFPAY ==
--- NOTE | 2023-05-15 09:30 | PAPFT_PTH ---
PATIENT: Amanda Vallejo LOC: [facility] U#:[id number] AGE/SX: 22/F ROOM: RE05/15/[address]: Christine Holley CNM : 2000 BED: DIS: 05/15/2023 SPEC #: [id number] RECD: 05/15/23 13:06 STATUS: CHARLI RENirali #: [id number] [place]: 05/15/23 09:[address]: Christine Holley DEPT: [facility] Cytology RECD BY: Crissy Perez ENTERED: 05/15/23 13:07 SP TYPE: PAPFT OTHR DR: Marlena Holloway APRN Tissues: 1 - CX/ENDOCX FOR PAP SMEARS Procedures: PAP THIN PREP/[facility]VM Screening HPV DNA PROBE Comments: [id number] (CHLAMYDIA/GC)
[2023-05-16 14:36] LABS: Chlamydia Result Negative (Negative); GC Result Negative (Negative)
== END 2023-05-15 10:11 | disposition home or self-care (01) ==
LOC: LBN 10:10
PROVIDERS: PCP Nurse Practitioner; Visit Provider Advanced Practice Midwife
DX: Z12.4 Encounter for screening for malignant neoplasm of cervix (principal); Z11.51 Encounter for screening for human papillomavirus (HPV); R87.612 Low grade squamous intraepithelial lesion on cytologic smear of cervix (LGSIL); R87.810 Cervical high risk human papillomavirus (HPV) DNA test positive
CPT/HCPCS: 87491; 87591; 88142; 87624

== ENCOUNTER 2023-05-24 06:25 | Day surgery (SDC) | payer MEDICAID, SELFPAY ==
[2023-05-24] VITALS (9 sets, daily range): BP systolic 87–144; BP diastolic 49–69; PULSE 41–70; RESP 12–20; TEMP 36.2–36.6; O2SAT 93–98; BMI 33.5
--- NOTE | 2023-05-24 06:58 | ANES.PREOP_ITS ---
General Info Date of Service Date Performed: 05/24/23 Height: 5 ft 8 in Weight: 100 kg Body Mass Index (BMI): 33.5 Surgical Procedure: Operation Date: 05/24/23 07:40 Proposed Procedure Side Surgeon p Salpingectomy Laparoscopic Bilateral Eva Nolen MD Meds Allergies and Home Medications Allergies Allergy/AdvReac Type Severity Reaction Status Date / Time cat hair Allergy Mild Itching Uncoded 05/24/23 06:43 dog hair Allergy Mild Itching Uncoded 05/24/23 06:43 Home Medication Medication Instructions Recorded albuterol sulfate 90 mcg/actuation 2 puff inhalation QID PRN 07/25/22 aerosol inhaler shortness of breath or wheezing #18 grams Current Visit Medications: Current Medications Generic Name Dose Route Start Last Admin Trade Name Freq PRN Reason Stop Dose Admin Ringer's Solution 1,000 mls @ 125 mls/hr 05/24/23 06:00 IV 06/22/23 23:59 INFUSION MIRNA IV Miscellaneous Supplies 1 each 05/24/23 06:00 Iv Access IV 06/22/23 23:59 DIRECTED MIRNA Sodium Chloride 0 ml 05/24/23 06:00 Normal Saline Flush 10 Ml Syr IV 06/22/23 23:59 PRN PRN Sodium Chloride 0 ml 05/24/23 06:00 Normal Saline 10 Ml Vial IJ 06/22/23 23:59 DIRECTED PRN Sterile Water 0 ml 05/24/23 06:00 Water,Injection,Sterile 10 Ml Vial IJ 06/22/23 23:59 DIRECTED PRN PFSH Active Problems Active Problems: Problem Status Onset Code Migraine headache without aura G43.009 Psoriasis L40.9 Cat allergies J30.81 Asthma J45.909 Medical History Medical History External hemorrhoid History of ovarian cyst Constipation Tobacco Smoking/Tobacco Use Status: Former Tobacco Use Second hand exposure: Yes Alcohol Alcohol Intake: current Alcohol intake frequency: a few times a month Substance Use Substance use: Never Substance use type: does not use Prental History History 3 Para 3 Hx # Term Pregnancies 3 Multiple births 0 Hx # Pregnancies 0 Ectopic pregnancies 0 AB induced 0 Hx Number of Living Children 3 AB spontaneous 0 Past Pregnancies Del. Date GA/Weeks # Preg Succ Route Wgt Sex Labor Lgth Anesth esia Location Prov Complic 04/29/19 40 No vaginal 3742.137 g Male 11 hrs 29 min Maite Ro CNM 10/06/21 40 No Yes vaginal 3770.487 g Male 18 regional W ces[facility] [place] 04/01/23 No Yes vaginal 3529.516 g Male 8hrs 26min regional SHUN Bryan Delivery Date: 04/29/19 Last Updated by: SHUN Gutierrez Delivery Date: 10/06/21 Last Updated by: SHUN Grimes. PROM, IOL Delivery Date: 04/01/23 Last Updated by: HAL Bojorquez Vital Signs and Lab Results Vital Signs Most Recent Vital Signs in EMR: Most Recent Vital Signs Temp Pulse Resp BP Pulse Ox 36.6 C 70 16 119/68 98 05/24/23 06:36 05/24/23 06:36 05/24/23 06:36 05/24/23 06:36 05/24/23 06:36 Point of Care Results Point of Care Results: POC- Test(urine) Negative 05/24/23 06:51 Lab Results Blood Type / Crossmatch: No Data to Display Complete Blood Count: No Data to Display Complete Metabolic Panel: No Data to Display Liver Function Panel: No Data to Display Coagulation Panel: No Data to Display Cardiac Panel: No Data to Display Arterial Blood Gas: No Data to Display Venous Blood Gas: No Data to Display Pancreas Panel: No Data to Display Thyroid Panel: No Data to Display Infectious Disease: Neisseria gonorrhoeae DNA Probe Negative (Negative) 05/15/23 0 9:30 Blood Cultures: No Data to Display Toxicology Panel: No Data to Display Panel: No Data to Display Anesthesia Assessment and Plan Anesthesia History Personal History: No History of Anesthesia Complications Family History: No Family History of Anesthesia Complications Exercise Tolerance Exercise Tolerance: Metabolic Equivalents>4 Pertinent Negatives Pertinent Negatives: No Symptoms of GERD, No Major Cardiovascular Symptoms or Complaints and No Major Pulmonary Symptoms or Complaints Cardiac & Pulmonary Exam Cardiac Exam: Normal S1/S2 Heart Sounds Pulmonary Exam: Clear Bilateral Breath Sounds Implantable Cardiac Device Does patient have a Pacemaker or an ICD?: No Airway Exam Known Difficult Airway: No Mallampati Class: 2 Mouth Opening: Normal (> 3cm) Thyromental Distance: Greater than 3 cm Neck Range of Motion: Full ROM Neck Circumference: Normal Teeth Condition: Normal Dentition ASA Classification ASA Score: ASA 2 Emergency Case?: No NPO Status NPO Status: NPO Clears >2 hours, Solids >8 hours Status Status: Negative HCG Anesthesia Plan Resuscitation Status: Full Code Anesthesia Technique: General Anesthesia Airway Planned: Endotracheal Tube Monitors Used: Standard Monitors and SedLine
[2023-05-24] MEDS: Lactated Ringers 1,000 ML 125 ML IV ×2 (07:00→09:34)
--- NOTE | 2023-05-24 08:22 | FALL_PTH ---
PATIENT: Amanda Vallejo LOC: [facility] U#:[id number] AGE/SX: 22/F ROOM: RE05/24/[address]: Eva Nolen MD : 2000 BED: DIS: 05/24/2023 SPEC #: [id number] RECD: 05/24/23 12:43 STATUS: CHARLI RENirali #: [id number] [place]: 05/24/23 08:[address]: Eva Nolen DEPT: Surgical Specimen RECD BY: Crissy Perez ENTERED: 05/24/23 12:44 SP TYPE: Fall OTHR DR: Marlena Holloway APRN Tissues: 1 - FALLOPIAN TUBE (STERILIZATION) 2 - FALLOPIAN TUBE (STERILIZATION) Procedures: GROSS AND MICRO LEVEL 2 Comments: [id number]
[2023-05-24] MEDS: Bupivacaine 0.25% Pres-Free 30 ML VIAL (08:23)
--- NOTE | 2023-05-24 08:53 | ROE_ITS ---
Date of service: 05/24/23 Time of Service: 08:53 Operative Note Operative Note DATE OF PROCEDURE: 05/24/23 PRE-OP DIAGNOSIS: Desires permanent sterilization POST-OP DIAGNOSIS: same large right ovarian cyst and right paratubal cyst PROCEDURE: Laparoscopic bilateral salpingectomy with right ovarian cystotomy and right paratubal cyst removal SURGEON: Eva Nolen ASSISTING SURGEON: Tara Cuellar Refer to Anesthesia Record ESTIMATED BLOOD LOSS: 50 PATHOLOGY: other (b/l tubes and right paratubal cyst) COMPLICATIONS: None Indications: Desires permanent sterilization Findings: Normal appearing uterus and left ovary and tube. The right ovary had a large simple cyst with clear fluid and there was also a large right paratubal cyst Procedure Description: After informed consent was signed the patient was taken to the operating room and given general anesthesia.? SCDs were placed on her legs.? She was prepped and draped in the dorsal lithotomy position in the [facility].? Her bladder was drained of urine via a straight catheter. A speculum was placed into the vagina to expose the cervix and a Biodesylka manipulator was placed into the cervix. The speculum was removed. Gloves were changed and attention was turned to the abdomen. The infraumbilical fold was grasped and injected with 0.25% marcaine with epinephrine. A 5mm incision was made in the infraumbilical fold with the scalpel. A hemostat was used to bluntly dissect the subcuticular layers. The fascia was grasped with keyshawn clamps and incised. The incision was extended with blunt pressure. The peritoneum was grasped and incised with metzembaum scissors. The visiport was used to enter the abdomen under direct visualization. Once entrance to the abdominal cavity was confirmed the CO2 was turned on and the abdomen was insufflated. Two lateral 5mm ports were then placed under direct visualization. The right ovarian cyst was grasp to visualize the tube. In the process it was ruptured and drained a large amount of clear fluid. The right tube was then identified and followed to the fimbriated end. A large paratubal cyst was noted. The tube was grasped and elevated and the mesosalpinx was clamped, cauterized and cut with the ligasure device. The was continued along the length of the tube. The proximal end of the tube was then transected with the ligasure to remove the tube and cyst as one specimen. The cyst was drained of fluid for easier removal. The entire speciman was removed through the umbilical port intact. The left tube was then identified and followed to the fimbriated end. The tube was grasped and elevated and the mesosalpinx was clamped, cauterized and cut with the ligasure device. The was continued along the length of the tube. The proximal end of the tube was then transected with the ligasure. The tube was removed through the right side port intact. Good hemostasis was noted on both sides. The ports were removed. The gas was released from the abdomen. The skin incisions were then closed with 4-0 vicryl. Mastisol and steristrips were placed. The manipulator was removed. The patient was placed back into the supine position.? She was moved to the stretcher and taken to the recovery room in stable condition.
--- NOTE | 2023-05-24 09:22 | W.ANESPOSTOP ---
Postoperative Evaluation Date, Time and Location Date Performed: 05/24/23 Time Performed: : Patient Location: PACU Vital Signs Most Recent Imported Vital Signs: Most Recent Vital Signs Temp Pulse Resp BP Pulse Ox 36.6 C 44 L 12 92/61 L 96 05/24/23 09:20 05/24/23 09:20 05/24/23 09:20 05/24/23 09:20 05/24/23 09:20 Pain Score Most Recent Pain Score: Most Recent Pain Score Pain Level 3 05/24/23 09:20 Assessment Mental Status: Arousable with meaningful communication Airway and Respiratory Function: Patent airway with normal (patient baseline) respiratory exam Cardiovascular Function: Hemodynamically Stable Hydration Status: Adequately Hydrated Nausea & Vomiting: No Nausea or Vomiting Pain: Pain is tolerable per patient Peripheral Nerve Block: Patient did not receive a nerve block
== END 2023-05-24 11:25 | disposition home or self-care (01) ==
PROVIDERS: PCP Nurse Practitioner; Visit Provider Obstetrics & Gynecology
PROC: (CPT 58661; principal; 2023-05-24 07:30)
DX: Z30.2 Encounter for sterilization (principal); N83.8 Other noninflammatory disorders of ovary, fallopian tube and broad ligament
CPT/HCPCS: 58661; 49322; 81025; 88302; J0131; J1100; J1885; J2001; J2405; J3010

== ENCOUNTER 2023-06-19 15:35 | Outpatient (REF) | payer MEDICAID, SELFPAY ==
--- NOTE | 2023-06-19 14:40 | CER_PTH ---
PATIENT: Amanda Vallejo LOC: [facility] U#:[id number] AGE/SX: 22/F ROOM: RE06/19/[address]: Eva Nolen MD : 2000 BED: DIS: 06/19/2023 SPEC #: [id number] RECD: 06/19/23 18:00 STATUS: CHARLI REQ #: [id number] [place]: 06/19/23 14:[address]: Eva Nolen DEPT: Surgical Specimen RECD BY: Crissy Perez ENTERED: 06/19/23 18:01 SP TYPE: CER OTHR DR: Marlena Holloway APRN Tissues: 1 - CERVICAL BIOPSY Procedures: GROSS AND MICRO LEVEL 4 Comments: [id number]
== END 2023-06-19 15:36 | disposition home or self-care (01) ==
LOC: LBN 15:35
PROVIDERS: PCP Nurse Practitioner; Visit Provider Obstetrics & Gynecology
DX: N87.0 Mild cervical dysplasia (principal)
CPT/HCPCS: 88305

== ENCOUNTER 2024-08-19 10:40 | Outpatient (REF) | payer SELFPAY ==
--- NOTE | 2024-08-19 09:25 | PAPFT_PTH ---
PATIENT: Amanda Vallejo LOC: [facility] U#:[id number] AGE/SX: 23/F ROOM: RE08/19/[address]: Eva Nolen MD : 2000 BED: DIS: 08/19/2024 SPEC #: [id number] RECD: 08/19/24 13:09 STATUS: CHARLI RENirali #: [id number] [place]: 08/19/24 09:[address]: Eva Nolen DEPT: [facility] Cytology RECD BY: Crissy Perez ENTERED: 08/19/24 13:09 SP TYPE: PAPFT OTHR DR: Marlena Holloway APRN Tissues: 1 - CX/ENDOCX FOR PAP SMEARS Procedures: PAP THIN PREP/[facility] Screening HPV DNA PROBE Comments: [id number] (HPV 16 & 18/45)
== END 2024-08-19 10:41 | disposition home or self-care (01) ==
LOC: LBN 10:40
PROVIDERS: PCP Nurse Practitioner; Visit Provider Obstetrics & Gynecology
DX: Z01.419 Encounter for gynecological examination (general) (routine) without abnormal findings (principal); Z87.42 Personal history of other diseases of the female genital tract; Z72.0 Tobacco use
CPT/HCPCS: 88142; 87624

== ENCOUNTER 2024-12-16 04:18 | Outpatient (CLI) | payer OTHER, SELFPAY ==
[2024-12-16 16:07] LABS: T4 8.1 ug/dL (4.7-13.3)
[2024-12-16 16:31] LABS: Magnesium 1.7 mg/dL (1.8-2.4); Vitamin D 25 Total 18 ng/mL (30-100)
[2024-12-16 17:16] LABS: PHOSPHORUS 3.8 mg/dL (2.6-4.7)
[2024-12-16 23:13] LABS: T3, Total 119 ng/dL (97-169)
[2024-12-17 02:11] LABS: Parathyroid Hormone,Intact 30 pg/mL (19-88)
== END 2024-12-16 04:19 | disposition home or self-care (01) ==
PROVIDERS: PCP Nurse Practitioner; Visit Provider Family Medicine
DX: R53.83 Other fatigue (principal)
CPT/HCPCS: 36415; 82306; 83735; 83970; 84100; 84436; 84480

== ENCOUNTER 2024-12-18 15:45 | Outpatient (CLI) | payer OTHER, SELFPAY ==
[2024-12-19 10:37] LABS: Measles IgG Antibody Positive (See Note)
[2024-12-19 10:42] LABS: Mumps Antibody IgG Negative (See Note)
== END 2024-12-18 15:46 | disposition home or self-care (01) ==
LOC: LBO 15:50
PROVIDERS: PCP Nurse Practitioner; Visit Provider Nurse Practitioner Family
DX: Z02.1 Encounter for pre-employment examination (principal)
CPT/HCPCS: 36415; 86735; 86765

== ENCOUNTER 2025-01-03 18:57 | Emergency (ER) | payer OTHER, SELFPAY ==
[2025-01-03 19:00] VITALS: BP 105/71; PULSE 80; RESP 16; O2SAT 100
--- NOTE | 2025-01-03 19:15 | DI.RAD_ITS ---
Exam(s) XR ANKLE RT COMPLETE EXAM: XR ANKLE RT COMPLETE CLINICAL HISTORY: Twisted, lateral pain. TECHNIQUE: 2D digital imaging was performed of the right ankle. Three images were obtained. AP, lateral and oblique views were obtained. COMPARISON: No exams were available for comparison FINDINGS: BONES: No acute fracture is present. No bony destructive lesion is seen. JOINTS: The ankle mortise is normally aligned. SOFT TISSUE: Normal. IMPRESSION: 1. Unremarkable radiographs of the right ankle. 2. The preliminary [facility] report was reviewed. DATA REPOSITORY: RADIATION DOSE DELIVERED:
[2025-01-03] MEDS: Ibuprofen 600 MG TAB PO (19:30)
[2025-01-03] MEDS: Acetaminophen 500 MG TAB 1000 MG PO (19:30)
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
--- NOTE | 2025-01-03 20:40 | DI.VRAD_ITS ---
PROCEDURE INFORMATION: Exam: XR Right Ankle Exam date and time: 01/03/2025 7:43 PM Age: 24 years old Clinical indication: Other: Twisted, lateral pain TECHNIQUE: Imaging protocol: Radiologic exam of the right ankle. Views: 3 or more views. COMPARISON: No relevant prior studies available. FINDINGS: Bones/joints: Normal. Soft tissues: Normal. IMPRESSION: No acute findings. Dictated and Authenticated by: Cale Lemon MD. Orderin [facility]. Rafael Apodaca MD
--- NOTE | 2025-02-03 10:41 | NUR.NOTE ---
Accessed Pt chart to print the discharge summary for [facility]
== END 2025-01-03 21:00 | disposition home or self-care (01) ==
PROVIDERS: Emergency Provider Emergency Medicine; PCP Nurse Practitioner
DX: S93.401A Sprain of unspecified ligament of right ankle, initial encounter (principal); F17.210 Nicotine dependence, cigarettes, uncomplicated; X50.1XXA Overexertion from prolonged static or awkward postures, initial encounter; Y93.02 Activity, running; Y92.017 Garden or yard in single-family (private) house as the place of occurrence of the external cause
CPT/HCPCS: 99283; 73610

== ENCOUNTER 2025-06-19 10:57 | Outpatient (REF) | payer OTHER, SELFPAY | END 2025-06-19 10:58 | disposition home or self-care (01) | LOC: LBN 10:57 | PROVIDERS: PCP Nurse Practitioner; Visit Provider Advanced Practice Midwife | DX: R30.0 Dysuria (principal) | CPT/HCPCS: 87077; 87086; 87186 ==

== ENCOUNTER 2025-06-21 15:51 | Emergency (ER) | payer OTHER, SELFPAY ==
[2025-06-21 15:54] VITALS: BP 116/82; PULSE 74; RESP 16; TEMP 36.8; O2SAT 94
[2025-06-21] MEDS: SUMAtriptan 6 MG/0.5 ML VIAL SC (16:17)
[2025-06-21] MEDS: Normal Saline 1,000 ML 1000 ML IV (16:27)
[2025-06-21] MEDS: Prochlorperazine 10 MG/2 ML VIAL IVP (16:28)
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
[2025-06-21 16:48] VITALS: BP 116/82; PULSE 74; RESP 16; TEMP 36.8; O2SAT 94
[2025-06-21 17:08] LABS: ALT 17 U/L (10-49); AST 16 U/L (<34); Albumin 4.5 g/dL (3.2-5.0); Alkaline Phosphatase 56 U/L (46-116); Anion Gap 9.6 mmol/L (3-11); BUN 15 mg/dL (9-23); Bilirubin, Total 0.70 mg/dL (0.2-1.2); CO2 24.4 mmol/L (20.0-31.0); Calcium 9.2 mg/dL (8.3-10.6); Chloride 109 mmol/L (98-107); Glucose 79 mg/dL (74-106); Potassium 4.1 mmol/L (3.5-5.1); Sodium 143 mmol/L (136-145); Total Protein 7.4 g/dL (5.7-8.2)
[2025-06-21 17:27] VITALS: BP 112/70; PULSE 92; RESP 14; O2SAT 98
[2025-06-21] MEDS: Ondansetron O.D.T. 4 MG TABEF, 3 TABS/BTL PO (17:30)
== END 2025-06-21 17:25 | disposition home or self-care (01) ==
PROVIDERS: Emergency Provider Physician Assistant; PCP Nurse Practitioner
DX: R51.9 Headache, unspecified (principal); R11.2 Nausea with vomiting, unspecified
CPT/HCPCS: 36415; 80053; 81025; 96361; 96374; 96375; 99284; 99283; J0780; J3030